=== PATIENT | male | born 1995 | race Native Hawaiian/Other Pacific Islander ===

== ENCOUNTER 2020-07-05 15:27 | Emergency (ER) | payer OTHER ==
[2020-07-05 15:40] VITALS: BP 164/90
--- NOTE | 2020-07-05 16:02 | ED Physician Documentation ---
PD HPI MHE - Stated complaint Stated Complaint: MHE - Chief complaint Chief Complaint: MHE - History obtained from History obtained from: Patient - Additional information Additional information: 24-year-old gentleman who is active duty in the [employer] has had depression for quite some time. [place] counseling and mental health but he answered yes to some screening questions and was referred here for further evaluation and treatment. He says he does not have current or recent suicidal ideation, just occasional thoughts of "maybe it would be better if I was not here." No plans. Review of Systems Ten Systems: 10 systems reviewed and negative Constitutional: denies: Fever, Chills Nose: reports: Reviewed and negative Throat: reports: Reviewed and negative Cardiac: reports: Reviewed and negative PD PAST MEDICAL HISTORY - Allergies Allergies/Adverse Reactions: Allergies Allergy/AdvReac Type Severity Reaction Status Date / Time No Known Drug Allergies Allergy Verified 07/05/20 15:33 PD ED PE NORMAL - Vitals Vital signs reviewed: Yes - General General: Alert and oriented X 3, No acute distress - HEENT HEENT: PERRL, EOMI - Neck Neck: Supple, no meningeal sign, No bony TTP - Neuro Neuro: Alert and oriented X 3, propulsion generator repairer 2-12 intact, No motor deficit, No sensory deficit, Normal speech - Psych Psych: Normal mood, Normal affect Results - Vitals Vitals: Vital Signs - 24 hr 07/05/20 15:33 Temperature 36.6 C Heart Rate 100 Respiratory 16 Rate Blood Pressure 164/90 H O2 Saturation 97 Oxygen O2 Source Room air PD MEDICAL DECISION MAKING - ED course ED course: 24-year-old gentleman who has depression and hopelessness but no specific suicidal ideation presents at the behest of the [facility] for evaluation. On my evaluation he is low risk. He was offered transfer to [facility] which he decline d. Departure - Departure Disposition: 01 Home, Self Care Clinical Impression: Depression Qualifiers: Depression Type: major depressive disorder Major depression recurrence: recurrent Active/Remission status: currently active Major depression episode severity: moderate Qualified Code(s): F33.1 - Major depressive disorder, recurrent, moderate Condition: Good Record reviewed to determine appropriate education?: Yes Instructions: ED Depression Comments: [place] Return if worsening if you develop a plan or other concerning symptoms.
== END 2020-07-05 16:06 | disposition home or self-care (01) ==
LOC: ED 15:27
DX: F33.1 Major depressive disorder, recurrent, moderate (principal)
CPT/HCPCS: 80053; 80307; 80320; 80329; 83690; 84443; 85025; 99283

== ENCOUNTER 2021-08-29 09:35 | Outpatient (CLI) | payer OTHER | END 2021-08-29 09:36 | disposition critical access hospital (66) | LOC: EMS 09:35 | DX: R06.02 Shortness of breath (principal); R68.89 Other general symptoms and signs; F41.9 Anxiety disorder, unspecified | CPT/HCPCS: A0425; A0429 ==

== ENCOUNTER 2021-08-29 09:49 | Emergency (ER) | payer OTHER ==
[2021-08-29] MEDS ORDERED: LORazepam 2 MG/ML VIAL IVP STA (10:01)
[2021-08-29] MEDS ORDERED: SODIUM CHLORIDE 0.9% 1,000 ML IV STA ×2 (10:01→11:11)
--- NOTE | 2021-08-29 10:03 | ED Physician Documentation ---
History of Present Illness - Stated complaint Stated Complaint: SOA - History obtained from History obtained from: Patient - Additonal information Additional information: The patient is brought to the emergency department by EMS for chief complaint of "feeling heavy and short of breath". The patient states that he got up this morning and just felt as though his whole body was "heavy". He states he been a little nauseated yesterday but did not think much of it, and did not have any other symptoms. He states that this morning, he figured he would just try and get moving and hoped his symptoms would get better, but that while sitting in a meeting this morning, he became aware that he was breathing harder and faster, and ended up having to leave the room. He asked somebody to call EMS and they brought him here. Patient denies any history of pulmonary issues. He has no history of asthma and has not had any fevers or cough. He had previously been a smoker but had quit for about a year until 2 weeks ago when he started smoking again. Patient denies any chest pain. He had some loose stools a couple of days ago but otherwise no diarrhea. No vomiting with the nausea. No swelling in his lower extremities. No personal history of DVT. The patient states he still feels about the same, the medics note the patient has had comfortable respirations with good sats in route. No history of anxiety or panic disorder. No cardiac issues. Review of Systems Ten Systems: 10 systems reviewed and negative Constitutional: reports: Reviewed and negative Eyes: reports: Reviewed and negative Ears: reports: Reviewed and negative Nose: reports: Reviewed and negative Throat: reports: Reviewed and negative Cardiac: reports: Reviewed and negative Respiratory: reports: Dyspnea GI: reports: Reviewed and negative : reports: Reviewed and negative Skin: reports: Reviewed and negative Musculoskeletal: reports: Reviewed and negative Neurologic: reports: Reviewed and negative Psychiatric: reports: Reviewed and negative Endocrine: reports: Reviewed and negative Immunocompromised: reports: Reviewed and negative PD PAST MEDICAL HISTORY - Present Medications Home Medications: Ambulatory Orders Medication Instructions Recorded Confirmed No Known Home Medications 08/29/21 08/29/21 - Allergies Allergies/Adverse Reactions: Allergies Allergy/AdvReac Type Severity Reaction Status Date / Time No Known Drug Allergies Allergy Verified 08/29/21 10:01 PD ED PE NORMAL - Vitals Vital signs reviewed: Yes - General General: Alert and oriented X 3, No acute distress, Well developed/nourished, Other (The patient appears slightly anxious but otherwise no apparent distress.) - HEENT HEENT: Atraumatic, PERRL, EOMI, Moist mucous membranes - Neck Neck: Supple, no meningeal sign - Cardiac Cardiac: RRR, No murmur, Strong equal pulses - Respiratory Respiratory: No respiratory distress, Clear bilaterally - Abdomen Abdomen: Soft, Non tender, Non distended - Derm Derm: Normal color, Warm and dry, No rash - Extremities Extremities: No deformity, No edema, No calf tenderness / cord - Neuro Neuro: Alert and oriented X 3, perinatal social worker 2-12 intact, Normal speech, Other (Grossly intact) - Psych Psych: Normal mood, Normal affect Results - Vitals Vitals: Vital Signs - 24 hr 08/29/21 08/29/21 09:58 12:00 Temperature 36.6 C 36.6 C Heart Rate 91 74 Respiratory 20 20 Rate Blood Pressure 143/89 H 156/99 H O2 Saturation 96 98 Oxygen O2 Source Room air - EKG (time done) 0950 Rate: Rate (enter#) (89) Rhythm: NSR Cooper: Normal Intervals: Normal MS QRS: Normal Ischemia: Normal ST segments Compare to prior EKG: Old EKG unavailable Computer interpretation: Agree with computer - Labs Labs: Laboratory Tests 08/29/21 08/29/21 08/29/21 10:10 10:10 11:16 WBC 5.9 RBC 5.59 Hgb 15.9 Hct 46.7 MCV 83.5 MCH 28.4 MCHC 34.0 RDW 12.1 Plt Count 220 MPV 9.8 Neut # (Auto) 3.8 Lymph # (Auto) 1.6 Wagoner # (Auto) 0.4 Eos # (Auto) 0.1 Baso # (Auto) 0.0 Absolute Nucleated RBC 0.00 Nucleated RBC % 0.0 D-Dimer 242.3 Sodium 135 Potassium 3.9 Chloride 105 Carbon Dioxide 25 Anion Gap 5.0 L BUN 15 Creatinine 1.0 Estimated GFR (MDRD) 90 Glucose 109 H Calcium 9.3 Total Bilirubin 0.8 AST 33 ALT 71 H Alkaline Phosphatase 48 Total Protein 7.2 Albumin 4.7 Globulin 2.5 Albumin/Globulin Ratio 1.9 Lipase 31 Nasal Adenovirus (PCR) Nasal B. parapertussis DNA (PCR) Nasal Coronavir 229E PCR Nasal Coronavir HKU1 PCR Nasal Coronavir NL63 PCR Nasal Coronavir OC43 PCR Nasal Enterovir/Rhinovir PCR Nasal Influenza B PCR Nasal Influenza A PCR Nasal Parainfluen 1 PCR Nasal Parainfluen 2 PCR Nasal Parainfluen 3 PCR Nasal Parainfluen 4 PCR Nasal RSV (PCR) Nasal B.pertussis DNA PCR Nasal C.pneumoniae (PCR) Dominguez Human Metapneumo PCR Nasal M.pneumoniae (PCR) Nasal SARS-CoV-2 (PCR) 08/29/21 11:20 WBC RBC Hgb Hct MCV MCH MCHC RDW Plt Count MPV Neut # (Auto) Lymph # (Auto) Wagoner # (Auto) Eos # (Auto) Baso # (Auto) Absolute Nucleated RBC Nucleated RBC % D-Dimer Sodium Potassium Chloride Carbon Dioxide Anion Gap BUN Creatinine Estimated GFR (MDRD) Glucose Calcium Total Bilirubin AST ALT Alkaline Phosphatase Total Protein Albumin Globulin Albumin/Globulin Ratio Lipase Nasal Adenovirus (PCR) NOT DETECTED Nasal B. parapertussis DNA (PCR) NOT DETECTED Nasal Coronavir 229E PCR NOT DETECTED Nasal Coronavir HKU1 PCR NOT DETECTED Nasal Coronavir NL63 PCR NOT DETECTED Nasal Coronavir OC43 PCR NOT DETECTED Nasal Enterovir/Rhinovir PCR NOT DETECTED Nasal Influenza B PCR NOT DETECTED Nasal Influenza A PCR NOT DETECTED Nasal Parainfluen 1 PCR NOT DETECTED Nasal Parainfluen 2 PCR NOT DETECTED Nasal Parainfluen 3 PCR NOT DETECTED Nasal Parainfluen 4 PCR NOT DETECTED Nasal RSV (PCR) NOT DETECTED Nasal B.pertussis DNA PCR NOT DETECTED Nasal C.pneumoniae (PCR) NOT DETECTED Dominguez Human Metapneumo PCR NOT DETECTED Nasal M.pneumoniae (PCR) NOT DETECTED Nasal SARS-CoV-2 (PCR) NOT DETECTED - Rads (name of study) Chest XR Radiology: Final report received, EMP read indepedently, See rad report (neg) PD MEDICAL DECISION MAKING - ED course Complexity details: reviewed results, re-evaluated patient, considered differential, d/w patient ED course: The patient appeared somewhat anxious otherwise in no distress. He was worked up with labs, EKG, and chest x-ray, all of which were unremarkable. He was given a liter of normal saline and half a milligram of Ativan IV. The patient reported not feeling much better after the above. He was given another liter of normal saline and sent evaluated with a respiratory PCR, which was completely negative. D-dimer was also negative. The patient was found to be feeling better after the second liter of fluid. Extensive work-up had been negative and I felt he was stable for discharge home. It is possible that the patient has a viral syndrome that is not part of our PCR testing, and it is also possible that the patient was somewhat dehydrated, given his response to fluid. Discussed with the patient is not clear exactly what caused his symptoms this morning, but that he should follow-up with his primary care physician for further concerns. We have discussed the usual indications for return here. Departure - Departure Disposition: Home, Self Care Clinical Impression: Fatigue Qualifiers: Fatigue type: unspecified Qualified Code(s): R53.83 - Other fatigue Dyspnea Qualifiers: Dyspnea type: shortness of breath Qualified Code(s): R06.02 - Shortness of breath Condition: Stable Instructions: ED Weakness [facility]O Comments: Extensive testing has been done today, and no specific cause of your symptoms has been found. Your EKG is normal. Your chest x-ray shows no concerning findings. Your labs all look good, including a lab we used to look for blood clot. We did a viral panel which tests for some of the common viruses, including Covid, and this was negative. It is possible that you may have a viral illness caused by one of the other many viruses that go around, and sometimes this can cause fatigue, nausea, and just a sense of being unwell without further specific symptoms. You did have good response to a couple liters of IV fluid, and it is very important that you drink plenty of water to stay hydrated, as dehydration can also be a cause of symptoms such as you had today. Please follow-up with your primary care physician for further concerns Discharge Date/Time: 08/29/21 12:50
[2021-08-29 10:13] LABS: BASOPHILS % (AUTO) 0.7 %; EOSINOPHILS # (AUTO) 0.1 10^3/uL (0.0-0.7); EOSINOPHILS % (AUTO) 1.4 %; HCT - HEMATOCRIT 46.7 % (42.0-52.0); HGB - HEMOGLOBIN 15.9 g/dL (14.0-18.0); LYMPHOCYTES # (AUTO) 1.6 10^3/uL (1.5-3.5); LYMPHOCYTES % (AUTO) 26.4 %; MEAN CORPUSCULAR HEMOGLOBIN 28.4 pg (27.0-31.0); MEAN CORPUSCULAR VOLUME 83.5 fL (80.0-94.0); MEAN PLATELET VOLUME 9.8 fL (7.4-11.4); MONOCYTES # (AUTO) 0.4 10^3/uL (0.0-1.0); MONOCYTES % (AUTO) 6.3 %; NEUTROPHILS # (AUTO) 3.8 10^3/uL (1.5-6.6); NEUTROPHILS % (AUTO) 64.9 %; PLT - PLATELET COUNT 220 10^3/uL (130-450); RED BLOOD COUNT 5.59 10^6/uL (4.70-6.10); RED CELL DISTRIBUTION WIDTH 12.1 % (12.0-15.0); WHITE BLOOD COUNT 5.9 x10^3/uL (4.8-10.8)
[2021-08-29 10:27] LABS: ALBUMIN 4.7 g/dL (3.2-5.5); ALBUMIN/GLOBULIN RATIO 1.9 (1.0-2.2); BILIRUBIN,TOTAL 0.8 mg/dL (0.2-1.0); CALCIUM 9.3 mg/dL (8.5-10.3); POTASSIUM 3.9 mmol/L (3.5-5.0); TOTAL PROTEIN 7.2 g/dL (6.7-8.2)
--- NOTE | 2021-08-29 10:28 | XRAY Report ---
PROCEDURE: Chest 1 View X-Ray INDICATIONS: chest pain TECHNIQUE: One view of the chest was acquired. COMPARISON: None FINDINGS: Surgical changes and devices: None. Lungs and pleura: No pleural effusions or pneumothorax. Lungs demonstrate low volumes but are clear . Mediastinum: Mediastinal contours appear normal. Heart size is normal. Bones and chest wall: No suspicious bony lesions. Overlying soft tissues appear unremarkable. IMPRESSION: No acute cardiopulmonary disease. Reviewed by: Kristy Sandoval MD on 08/29/2021 10:26 AM [facility] Approved by: Kristy Sandoval MD on 08/29/2021 10:26 AM [facility] Station ID: [id number]
[2021-08-29 12:06] VITALS: BP 156/99
[2021-08-29 12:27] LABS: CORONAVIRUS 229E-RESP PCR NOT DETECTED; CORONAVIRUS HKU1-RESP PCR NOT DETECTED; CORONAVIRUS NL63-RESP PCR NOT DETECTED; CORONAVIRUS OC43-RESP PCR NOT DETECTED; HUMAN METAPNEUMOVIRUS NOT DETECTED; INFLUENZA A- RESP PCR PANEL NOT DETECTED; RHINOVIRUS/ENTEROVIRUS NOT DETECTED; SARS-CoV-2 -RESP PCR PANEL NOT DETECTED
[2021-08-29 12:28] LABS: B. PARAPERTUSSIS- RESP PCR PAN NOT DETECTED; B. PERTUSSIS- RESP PCR PANEL NOT DETECTED; C. PNEUMONIAE- RESP PCR PANEL NOT DETECTED; INFLUENZA B - RESP PCR PANEL NOT DETECTED; M. PNEUMONIAE- RESP PCR PANEL NOT DETECTED; PARAINFLUENZA VIRUS 1 NOT DETECTED; PARAINFLUENZA VIRUS 2 NOT DETECTED; PARAINFLUENZA VIRUS 3 NOT DETECTED; PARAINFLUENZA VIRUS 4 NOT DETECTED; RSV- RESP PCR PANEL NOT DETECTED
== END 2021-08-29 12:50 | disposition home or self-care (01) ==
LOC: EDUNIT# → ED 09:49
DX: R53.83 Other fatigue (principal); R06.02 Shortness of breath; Z20.822 Contact with and (suspected) exposure to COVID-19
CPT/HCPCS: 0202U; 36415; 71045; 80053; 83690; 85025; 85379; 93005; 96374; 99283; 99284; J2060

== ENCOUNTER 2022-01-18 12:50 | Outpatient (CLI) | payer OTHER ==
[2022-01-18 13:57] VITALS: BP 138/91
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
== END 2022-01-18 12:51 | disposition home or self-care (01) ==
LOC: SC 12:50
PROVIDERS: ATTEND Nurse Practitioner Family
DX: R06.83 Snoring (principal); R06.81 Apnea, not elsewhere classified; R09.89 Other specified symptoms and signs involving the circulatory and respiratory systems
CPT/HCPCS: 99203; 99212

== ENCOUNTER 2022-12-12 18:59 | Emergency (ER) | payer OTHER ==
[2022-12-12] MEDS ORDERED: HYDROmorphone 1 MG/ML CARPUJECT IM STA (19:27)
--- NOTE | 2022-12-12 19:37 | ED Physician Documentation ---
History of Present Illness - Stated complaint Stated Complaint: L HAMSTRING INJ - Chief complaint Chief Complaint: Trauma Ext - Additonal information Additional information: 27-year-old male presents to the emergency department for evaluation of acute left posterior thigh pain. He was running bases when he felt a sudden pop in the left posterior thigh resulting in a face plant to the ground. He is in excruciating pain and will not allow movement or exam of the leg. No history of previous injury. Denies any recent steroid use or fluoroquinolone use Review of Systems Constitutional: denies: Fever Musculoskeletal: reports: Extremity pain PD PAST MEDICAL HISTORY - Past Surgical History Past Surgical History: Yes Ortho: Other - Present Medications Home Medications: Ambulatory Orders Medication Instructions Recorded Confirmed Ibuprofen [Motrin] 600 mg PO Q6H PRN #30 tab 12/12/22 oxyCODONE [Roxicodone] 5 mg PO TID PRN #15 tablet 12/12/22 - Allergies Allergies/Adverse Reactions: Allergies Allergy/AdvReac Type Severity Reaction Status Date / Time No Known Drug Allergies Allergy Verified 12/12/22 19:12 - Social History Does the pt smoke?: Yes Smoking Status: Current every day smoker Does the pt drink ETOH?: Yes Does the pt have substance abuse?: No - Immunizations Immunizations are current?: Yes PD ED PE EXPANDED - General General: Alert, In Pain - Extremities Extremities: Left leg (Exquisite tenderness with mild palpation of the left posterior thigh without an obvious deficit. Ecchymosis is present. Patient is unable to flex or extend at the knee or hip. Neurovascular intact distally. 2+ pedal pulse) Results - Vitals Vitals: Vital Signs - 24 hr 12/12/22 12/12/22 12/12/22 19:05 19:28 20:16 Temperature 36.0 C L Heart Rate 100 107 H 102 H Respiratory 16 20 18 Rate Blood Pressure 143/68 H 164/61 H 148/64 H O2 Saturation 100 100 100 12/12/22 20:35 Temperature Heart Rate 105 H Respiratory 17 Rate Blood Pressure 130/61 O2 Saturation 97 Oxygen O2 Source Room air - Rads (name of study) CT lower extremity Relevant Findings:: Final report received (Hamstring tendons appear intact at the origins without evidence of avulsion. Suspected minimal fluid along the proximal biceps for Genaro tendon which may reflect a mild strain. Further evaluation may be obtained with MRI if clinically indicated. No intramuscular hematoma collections) PD Medical Decision Making - ED course Complexity details: reviewed results, re-evaluated patient, d/w patient ED course: 19-year-old male presents emergency department for evaluation of acute left posterior thigh pain. He was running when he felt a pop in the posterior thigh and fell to the ground. On exam he has exquisite pain in the posterior thigh and is unable to flex and extend at the knee or hip. Initially we did attempt x-ray imaging but the patient did not tolerate it due to to the pain. My concern on exam was for that of a hamstring tear or tendon injury. Given pain out of proportion on initial exam we did proceed to do a CT of the left thigh. MRI was not available at this time. The CT shows that he likely has a proximal biceps femoris tendon strain. The hamstring tendons do appear intact. Pain was ultimately controlled after the patient received 2 single doses of Dilaudid about 1 hour apart. He was placed in an Christ wrap and given a knee immobilizer and crutches. I discussed with the patient that hamstring tears as well as tendon injuries will typically resolve with conservative measures. He is to follow closely with [facility] and if not markedly improved over the next 7 to 10 days can consider referral to orthopedics or further evaluation with an MRI. I am prescribing a short course of short-acting opioid pain medication for this patient. I have reviewed the patients [employer] and no concerning findings were noted. I have discussed that the opioids are for short term therapy only, and will not be refilled from the ED. Departure - Departure Disposition: 01 Home, Self Care Clinical Impression: Biceps femoris tendon strain at knee Tear of left hamstring Qualifiers: Encounter type: initial encounter Qualified Code(s): S76.312A - Strain of muscle, fascia and tendon of the posterior muscle group at thigh level, left thigh, initial encounter Condition: Stable Record reviewed to determine appropriate education?: Yes Prescriptions: Ibuprofen [Motrin] 600 mg PO Q6H PRN #30 tab PRN Reason: Pain oxyCODONE [Roxicodone] 5 mg PO TID PRN #15 tablet PRN Reason: Pain Comments: You are seen today after running and feeling a pop in your posterior left thigh. You have a lot of pain with palpation of the body of the hamstring. I suspect that you have a partial tear. The CT scan completed of the leg shows tendons that appear to be intact. However it does look like there is likely a strain or partial tear of the biceps femoris tendon. At this time I would like you to continue to wear the Christ wrap when out of bed as well as use the knee immobilizer and crutches to get around. With most simple tears and strains, pain and symptoms should get better over the course of about 7 to 10 days. If not markedly better you may benefit from referral to orthopedics or further evaluation with an MRI. In general I recommend that you take 600 mg of Motrin with food 2-3 times a day or alternate with 500 mg of Tylenol for discomfort. For more severe pain a limited prescription of oxycodone has been sent to the [facility] in [place]. I am prescribing a short course of narcotic pain medication for you. These are potentially dangerous and addictive medications that should be used carefully. These medications may constipate you. Take an ougw-vjm-tuzoyvg stool softener (d ocusate) twice daily with plenty of water while taking these medications. If you go 24 hours without a bowel movement, take uian-smx-azfhlbm miralax, per package instructions. Do not drink or drive while taking these medications. If you received narcotic or sedating medications while in the emergency department, do not drive for 24 hours. Store this medication in a safe, secure place and out of reach of children. It is a violation of federal law to give or sell this medication to another person or to use in a manner other than prescribed. The ED will not refill narcotic prescriptions, including prescriptions lost or stolen. To dispose of unwanted medications: 1. [facility] at [address] in [place] has a medication drop box. They accept prescription medications (in pill form) Sunday through Sunday 9:00 a.m. to 5:00 p.m. 2. The [facility] [employer] accepts prescription medications (in pill form only) for disposal year round. Call for more information. 3. Contact the [facility] for the next [facility] sponsored prescription drug collection event. , [phone], or x [phone]; Note that many narcotic pain relievers also contain Tylenol/acetaminophen. Please ensure that your total dose of acetaminophen from all sources does not exceed 3 g (3000 mg) per day.
[2022-12-12] MEDS ORDERED: HYDROmorphone 1 MG/ML CARPUJECT IVP STA ×2 (19:41→19:56)
[2022-12-12] MEDS ORDERED: oxyCODONE/ACET 5/325 Prepack 4 PO STA (21:07)
--- NOTE | 2022-12-12 21:36 | CT Report ---
PROCEDURE: LOWER EXTREMITY WO - LT INDICATIONS: hip to knee; ? hamstring injury TECHNIQUE: Noncontrast 3-mm axial sections acquired from the distal tibial shaft to the talar dome, with coronal and sagittal reformats. For radiation dose reduction, the following was used: automated exposure c ontrol, adjustment of mA and/or kV according to patient size. COMPARISON: None. FINDINGS: Image quality: Excellent. Bones: Visualized osseous structures demonstrate no fracture or dislocation. No suspicious bony lesi ons. No bony erosions or periosteal reaction. Soft tissues: The hamstring tendons appear intact at the left ischial tuberosity. There is suggestio n of minimal fluid along the biceps femoris tendon proximally which may reflect a mild strain. The vi sualized musculature appears preserved without intramuscular fluid collections to suggest a hematoma. Impression: 1. Hamstring tendons appear intact at their origins without evidence of avulsion. 2. Suspected minimal fluid along the proximal biceps femoris tendon may reflect a mild strain. Furthe r evaluation may obtained with MRI if clinically indicated. 3. No intramuscular hematoma collections. Reviewed by: Esteban Sesay MD on 12/12/2022 9:34 PM PDT Approved by: Esteban Sesay MD on 12/12/2022 9:34 PM PDT Station ID: [id number]
[2022-12-12 22:19] VITALS: BP 122/81
== END 2022-12-12 22:16 | disposition home or self-care (01) ==
LOC: EDUNIT# → ED 18:59
DX: S86.812A Strain of other muscle(s) and tendon(s) at lower leg level, left leg, initial encounter (principal); S76.312A Strain of muscle, fascia and tendon of the posterior muscle group at thigh level, left thigh, initial encounter; X58.XXXA Exposure to other specified factors, initial encounter; Y93.02 Activity, running; F17.200 Nicotine dependence, unspecified, uncomplicated
CPT/HCPCS: 36415; 73700; 96374; 99283; J1170

== ENCOUNTER 2023-05-16 21:01 | Emergency (ER) | payer OTHER ==
[2023-05-16 21:10] VITALS: O2SAT 100
--- NOTE | 2023-05-16 22:50 | XRAY Report ---
PROCEDURE: Shoulder 3 View LT INDICATIONS: pain TECHNIQUE: 3 views of the shoulder were acquired. COMPARISON: None. FINDINGS: Bones: No fractures or dislocations. No suspicious bony lesions. Visualized ribs appear intact. Soft tissues: No suspicious soft tissue calcifications. The visualized lungs are within normal limi ts. IMPRESSION: No acute bony abnormality. Reviewed by: Deacon Pastrana on 05/16/2023 10:48 PM [facility] Approved by: Deacon Pastrana on 05/16/2023 10:48 PM [facility] Station ID: [id number]
[2023-05-17] MEDS ORDERED: KETOROLAC 30 MG/ML VIAL IM STA (00:23)
[2023-05-17] MEDS ORDERED: CYCLOBENZAPRINE 10 MG Prepack 2 PO PRN (02:17)
[2023-05-17] MEDS ORDERED: HYDROmorphone 0.5 MG/0.5 ML SYRINGE IM STA (02:17)
--- NOTE | 2023-05-17 02:19 | ED Physician Documentation ---
History of Present Illness - Stated complaint Stated Complaint: LT SHOULDER PX - Chief complaint Chief Complaint: Ext Problem - History obtained from History obtained from: Patient - Additonal information Additional information: 27-year-old man, previously healthy presents with left shoulder pain sudden onset while lifting weights today. Denies pain in the shoulder joint itself, elbow, arm.Denies neck pain. PD PAST MEDICAL HISTORY - Past Surgical History Past Surgical History: Yes Ortho: Other - Present Medications Home Medications: Ambulatory Orders Medication Instructions Recorded Confirmed No Known Home Medications 05/16/23 05/16/23 - Allergies Allergies/Adverse Reactions: Allergies Allergy/AdvReac Type Severity Reaction Status Date / Time No Known Drug Allergies Allergy Verified 05/16/23 21:04 - Social History Does the pt smoke?: Yes Smoking Status: Current every day smoker Does the pt drink ETOH?: Yes Does the pt have substance abuse?: No - Immunizations Immunizations are current?: Yes PD ED PE NORMAL - Vitals Vital signs reviewed: Yes - General General: Alert and oriented X 3, No acute distress, Well developed/nourished - HEENT HEENT: Atraumatic, PERRL, EOMI - Neck Neck: No bony TTP, Other (Left shoulder and neck tender to palpation in trapezi us muscle distribution) - Extremities Extremities: Normal ROM s pain, Other (CSM intact left upper extremity. Full range of motion left wrist, elbow, shoulder) Results - Vitals Vitals: Vital Signs - 24 hr 05/16/23 05/16/23 21:04 23:35 Temperature 36.5 C Heart Rate 81 Respiratory 16 20 Rate Blood Pressure 150/80 H O2 Saturation 100 Oxygen O2 Source Room air PD Medical Decision Making - ED course ED course: 27yM presents to the ED with trapezius muscle spasm of L shoulder after lifting weights today. FROM L shoulder, nontender to shoulder joint itself but appears to have some significant muscle spasm. CSM intact. advised symptomatic care. IM toradol and dilaudid provided with improvement in pain. patient states he will have friend drive him home. [place] precautions given. Departure - Departure Disposition: 01 Home, Self Care Clinical Impression: Pain in extremity Condition: Stable Instructions: ED Spasm Muscle Comments: You were seen in the emergency department for left trapezius muscle spasm. You received injections of toradol and dilaudid in the ED, and a prepack of pills for muscle relaxant called flexeril. Do not drive or operate heavy machinery while taking flexeril. Please follow-up with your primary care provider and return to the emergency dep artment if you have any new or worsening symptoms or other concerns.
[2023-05-17 02:44] VITALS: BP 130/76
== END 2023-05-17 02:39 | disposition home or self-care (01) ==
LOC: ED 21:01
DX: M62.838 Other muscle spasm (principal)
CPT/HCPCS: 73030; 96372; 99283; J1170

== ENCOUNTER 2023-12-24 08:09 | Emergency (ER) | payer OTHER ==
[2023-12-24 08:43] LABS: BASOPHILS % (AUTO) 0.7 %; EOSINOPHILS # (AUTO) 0.1 10^3/uL (0.0-0.7); EOSINOPHILS % (AUTO) 2.3 %; HCT - HEMATOCRIT 47.2 % (42.0-52.0); LYMPHOCYTES # (AUTO) 1.9 10^3/uL (1.5-3.5); LYMPHOCYTES % (AUTO) 33.9 %; MEAN CORPUSCULAR HEMOGLOBIN 28.5 pg (27.0-31.0); MEAN CORPUSCULAR HGB CONC 33.9 g/dL (32.0-36.0); MEAN PLATELET VOLUME 9.8 fL (7.4-11.4); MONOCYTES # (AUTO) 0.3 10^3/uL (0.0-1.0); MONOCYTES % (AUTO) 5.1 %; NEUTROPHILS # (AUTO) 3.3 10^3/uL (1.5-6.6); NEUTROPHILS % (AUTO) 57.7 %; PLT - PLATELET COUNT 229 10^3/uL (130-450); RED BLOOD COUNT 5.62 10^6/uL (4.70-6.10); RED CELL DISTRIBUTION WIDTH 12.2 % (12.0-15.0); WHITE BLOOD COUNT 5.7 x10^3/uL (4.8-10.8)
--- NOTE | 2023-12-24 08:45 | XRAY Report ---
PROCEDURE: Chest 1V INDICATIONS: Chest pain TECHNIQUE: One view of the chest was acquired. COMPARISON: 08/29/2021 FINDINGS: Surgical changes and devices: None. Lungs and pleura: No pleural effusions or pneumothorax. Lungs are clear. Mediastinum: Mediastinal contours appear normal. Heart size is normal. Bones and chest wall: No suspicious bony lesions. Overlying soft tissues appear unremarkable. IMPRESSION: No acute cardiopulmonary process. Reviewed by: Deacon Pastrana MD on 12/24/2023 8:44 AM PDT Approved by: Deacon Pastrana MD on 12/24/2023 8:44 AM PDT Station ID: [id number]
[2023-12-24 09:00] LABS: ALBUMIN 4.8 g/dL (3.2-5.5); ALBUMIN/GLOBULIN RATIO 2.2 (1.0-2.2); ALKALINE PHOSPHATASE 42 IU/L (42-121); ALT ALANINE AMINOTRANSFERASE 32 IU/L (10-60); AST ASPARTATE AMINOTRANSFERASE 19 IU/L (10-42); BILIRUBIN,TOTAL 0.4 mg/dL (0.2-1.0); BUN - BLOOD UREA NITROGEN 13 mg/dL (6-20); CALCIUM 9.7 mg/dL (8.5-10.3); CARBON DIOXIDE - CO2 28 mmol/L (21-32); CHLORIDE 103 mmol/L (101-111); CREATININE 1.1 mg/dL (0.6-1.3); GFR - MDRD 79 (>89); GLUCOSE 110 mg/dL (74-104); LIPASE 26 U/L (11-82); POTASSIUM 3.9 mmol/L (3.5-4.5); SODIUM 137 mmol/L (135-145)
[2023-12-24 09:06] LABS: TROPONIN I HIGH SENSITIVITY < 2.3 ng/L (2.3-19.7)
--- NOTE | 2023-12-24 09:34 | ED Physician Documentation ---
PD HPI CHEST PAIN - Stated complaint Stated Complaint: CHEST PX,SOA - Chief complaint Chief Complaint: Cardiac - History obtained from History obtained from: Patient - History of Present Illness Timing - onset: How many days ago (2) Timing - onset during: Light activity Timing - duration: Days (2) Timing - details: Abrupt onset, Still present (noted onset of dyspnea nd feeling heart/chest tightness after a Pre-Workout caffeinated drink Sunday AM. Undulating degree of symptoms since.) Quality: Tightness, Aching Location: Substernal, Left chest Radiation: Left upper extremity. No: Neck, Back Worsened by: Exertion. No: Inspiration, Movement Associated symptoms: Shortness of air, Nausea, Cough Review of Systems Constitutional: denies: Fever, Chills Nose: denies: Rhinorrhea / runny nose, Congestion Throat: denies: Sore throat Respiratory: denies: Cough PD PAST MEDICAL HISTORY - Past Medical History Past Medical History: No Cardiovascular: None Respiratory: None Neuro: None Endocrine/Autoimmune: None GI: None : None HEENT: None Psych: None Musculoskeletal: None Derm: None - Past Surgical History Past Surgical History: Yes Ortho: Other - Present Medications Home Medications: Ambulatory Orders Medication Instructions Recorded Confirmed Diphenoxylate/Atropine [Lomotil] 1 each PO QID PRN #12 tablet 12/24/23 Famotidine [Pepcid] 20 mg PO DAILY #15 tablet 12/24/23 Ondansetron Odt [Zofran] 4 mg TL Q6H PRN #10 tablet 12/24/23 - Allergies Allergies/Adverse Reactions: Allergies Allergy/AdvReac Type Severity Reaction Status Date / Time No Known Drug Allergies Allergy Verified 12/24/23 08:18 - Social History Does the pt smoke?: No Smoking Status: Never smoker Does the pt drink ETOH?: Yes Does the pt have substance abuse?: No - Immunizations Immunizations are current?: Yes PD ED PE NORMAL - Vitals Vital signs reviewed: Yes - General General: Alert and oriented X 3, Well developed/nourished - HEENT HEENT: Moist mucous membranes, Pharynx benign - Neck Neck: Supple, no meningeal sign, No adenopathy - Cardiac Cardiac: RRR, No murmur - Respiratory Respiratory: No respiratory distress, Clear bilaterally - Abdomen Abdomen: Soft, Non distended, Other Results - Vitals Vitals: Oxygen O2 Source Room air - Labs Labs: Laboratory Tests 12/24/23 12/24/23 08:38 08:38 WBC 5.7 RBC 5.62 Hgb 16.0 Hct 47.2 MCV 84.0 MCH 28.5 MCHC 33.9 RDW 12.2 Plt Count 229 MPV 9.8 Neut # (Auto) 3.3 Lymph # (Auto) 1.9 [place] # (Auto) 0.3 Eos # (Auto) 0.1 Baso # (Auto) 0.0 Absolute Nucleated RBC 0.00 Nucleated RBC % 0.0 Sodium 137 Potassium 3.9 Chloride 103 Carbon Dioxide 28 Anion Gap 6.0 BUN 13 Creatinine 1.1 Estimated GFR (MDRD) 79 L Glucose 110 H Calcium 9.7 Total Bilirubin 0.4 AST 19 ALT 32 Alkaline Phosphatase 42 Troponin I High Sens < 2.3 L Total Protein 7.0 Albumin 4.8 Globulin 2.2 Albumin/Globulin Ratio 2.2 Lipase 26 - Rads (name of study) abd/pelvic CT Relevant Findings:: Prelim report reviewed (no acute heart process. ), EMP independent interpretation of test PD Medical Decision Making - ED course Complexity details: reviewed results (Some fluid in pelvis c/w inflammatory process. Usually not have this. NO ACS. Can be gastric irritation from the Pre- Workout supplement. ), considered differential (some chest pain and pressure, with then devloped upper abd cramping and nausea.), d/w patient Departure - Departure Disposition: 01 Home, Self Care Clinical Impression: Nausea vomiting and diarrhea, Lower abdominal pain Condition: Stable Record reviewed to determine appropriate education?: Yes Instructions: ED Gastroenteritis Vs Food Poison Follow-Up: JC SOOD MD [Primary Care Provider] - Prescriptions: Diphenoxylate/Atropine [Lomotil] 1 each PO QID PRN #12 tablet PRN Reason: Diarrhea Famotidine [Pepcid] 20 mg PO DAILY #15 tablet Ondansetron Odt [Zofran] 4 mg TL Q6H PRN #10 tablet PRN Reason: Nausea / Vomiting Comments: Your CT scan did not show any acute localized process. In particular your appendix was normal and no signs of local colitis. Other organs such as pancreas liver and gallbladder were normal as well. Presume this is a food poisoning versus "stomach flu" and commonly will be at couple of days duration. Small frequent fluids and bland food. Use ondansetron if needed for nausea and Lomotil if needed for diarrhea. Tylenol every 4-6 hours if needed for fevers or pains. Your stomach will have gotten upset from the irritation of it and also from the vomiting. I would suggest a acid reducing medicine such as famotidine twice daily for the next week. Off duty for today and tomorrow. Recheck if not improved in the next couple day timeframe. Return if worse. Forms: PCP List, Activity restrictions Discharge Date/Time: 12/24/23 13:15
[2023-12-24] MEDS ORDERED: iohexoL-300 100 ML VIAL ONE (10:21)
[2023-12-24] MEDS: MAG HYDROX/AL HYDROX/SIMETH 30 ML UDC PO STA (10:32)
[2023-12-24] MEDS: ONDANSETRON 4 MG/2 ML VIAL IVP STA (10:32)
[2023-12-24] MEDS: KETOROLAC 15 MG/ML VIAL IVP STA (10:32)
[2023-12-24] MEDS: FAMOTIDINE 20 MG/2 ML VIAL IVP STA (10:32)
[2023-12-24] MEDS: SODIUM CHLORIDE 0.9% 1,000 ML IV STA (10:40)
--- NOTE | 2023-12-24 11:33 | CT Report ---
PROCEDURE: Abdomen/Pelvis W INDICATIONS: lower abd pain few days, increasing CONTRAST: Omni 300 100ml TECHNIQUE: After the administration of intravenous contrast, a CT scan of the abdomen and pelvis was performed. Images were recorded and evaluated at appropriate window settings. Reformats: coronal and sagittal. F or radiation dose reduction, the following was used: automated exposure control, adjustment of mA and /or kV according to patient size. COMPARISON: 12/24/2023 FINDINGS: Image quality: Diagnostic. Lower chest: Unremarkable. Liver: No solid mass. Gallbladder: No radiopaque stones or wall thickening. Biliary tree: No intrahepatic or extrahepatic dilation, accounting for age. Spleen: No splenomegaly. Pancreas: No pancreatic ductal dilation. Adrenals: No adrenal nodule. Kidneys and ureters: No hydronephrosis. No renal cystic lesion which requires follow up. No solid mas s. Stomach, bowel and peritoneum: No gastric or small bowel dilation. No abnormal wall thickening. Trace free fluid in the pelvis. Normal appendix. Lymph nodes: No central or retroperitoneal adenopathy. Vessels: No infrarenal aortic aneurysm. Patent portal vein. PELVIS Reproductive organs: Unremarkable. Bladder: No abnormal wall thickening, accounting for underdistention. Pelvic lymph nodes: No pelvic adenopathy by size criteria. Bones: No aggressive osseous abnormality. Other: No significant ventral or inguinal hernia. IMPRESSION: Trace free fluid in the pelvis, atypical in a male, and likely indicating an inflammatory or infectio us process. However, no process is clearly identified as there is no bowel wall thickening and the ap pendix is normal. Reviewed by: Deacon Pastrana MD on 12/24/2023 11:32 AM PDT Approved by: Deacon Pastrana MD on 12/24/2023 11:32 AM PDT Station ID: [id number]
[2023-12-24] MEDS: iohexoL-300 100 ML VIAL IVP ONE (12:44)
[2023-12-24 13:11] VITALS: BP 146/65; O2SAT 98
== END 2023-12-24 13:15 | disposition home or self-care (01) ==
LOC: ED 08:09
DX: R11.2 Nausea with vomiting, unspecified (principal); R19.7 Diarrhea, unspecified; R10.30 Lower abdominal pain, unspecified
CPT/HCPCS: 36415; 71045; 74177; 80053; 83690; 84484; 85025; 93005; 96374; 99284; A9270; Q9967